=== PATIENT | female | born 1995 | race Caucasian/White ===

== ENCOUNTER 2019-03-16 14:32 | Emergency (ER) | payer OTHER ==
[~2019-03-16] VITALS: Ht 160 cm; Wt 63.5 kg
[2019-03-16 15:01] LABS: ABSOLUTE NEUTROPHILS 7.2 thou/uL (1.4-8.2); BASOPHILS 0.6 % (0.0-2.0); EOSINOPHILS 0.3 % (0.0-3.0); HEMATOCRIT 42.6 % (37.0-47.0); HEMOGLOBIN 14.3 gm/dL (12.0-15.0); LYMPHOCYTES 18.7 % (24.0-44.0); MCH 29.8 pg (26.0-34.0); MCHC 33.5 g/dL (28.0-37.0); MCV 89.1 fL (80.0-100.0); MONOCYTES 4.5 % (1.0-8.0); PLATELET COUNT 256 thou/uL (150-400); POLYS 75.9 % (36.0-66.0); RBC 4.78 mil/uL (4.20-5.00); RDW 13.2 % (10.5-14.5); WBC 9.5 thou/uL (4.0-11.0)
[2019-03-16 15:07] LABS: ANION GAP 12 mmol/L (7-16); BUN 11 mg/dL (7-18); CHLORIDE 100 mmol/L (98-107); CO2 25 mmol/L (21-32); CREATININE 0.7 mg/dL (0.6-1.0); GLUCOSE 93 mg/dL (74-106); POTASSIUM 3.3 mmol/L (3.5-5.1); SODIUM 137 mmol/L (136-145)
[2019-03-16 15:18] LABS: ALBUMIN 4.6 g/dL (3.4-5.0); SGOT 23 U/L (15-37); SGPT 43 U/L (30-65); TOTAL BILIRUBIN 0.5 mg/dL (<0.1-1.0); TOTAL PROTEIN 8.5 g/dL (6.4-8.2); TROPONIN-I <0.06 ng/mL (<0.06)
[2019-03-16] MEDS ORDERED: ONDANSETRON HCL4 M2 PO (18:08)
[2019-03-16] MEDS ORDERED: ATIVAN0.5 M1 PO (18:08)
[2019-03-16 18:35] VITALS: BP 118/65
--- NOTE | 2019-03-18 12:14 | EKG ---
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
== END 2019-03-16 18:44 | disposition home or self-care (01) ==
LOC: ER 14:32
PROVIDERS: Physician Assistant
DX: F41.9 Anxiety disorder, unspecified (principal); R55 Syncope and collapse; R11.2 Nausea with vomiting, unspecified; R10.9 Unspecified abdominal pain; F17.210 Nicotine dependence, cigarettes, uncomplicated; Z88.0 Allergy status to penicillin; Z88.6 Allergy status to analgesic agent